=== PATIENT | male | born 1970 | race Caucasian/White ===

== ENCOUNTER 2020-12-16 15:57 | Inpatient (IN) ==
[2020-12-16 16:12] VITALS: BMI 21.4
[2020-12-16] MEDS ORDERED: NS 1000 ML 1,000 ML ONE ×2 (17:53→19:10)
--- NOTE | 2020-12-16 17:55 | DR.RPMALE ---
Rectal pain, Male PCP Primary Care Physician: none Complaint Chief Complaint:: Pt c/o bright red rectal bleeding and abdominal cramping this am. He states he has also had blood in his urine for years. Report received from alf that pt has internal hemorrhoids. Chief Complaint Doctors Comments: 50 y/o male, is an inmate, started with abdominal cramping around 0300 this am. Turned into rectal bleeding, had several episodes over 8 hours of rectal bleeding, associated with abdominal cramping. Pain is waxing, waning, cramping in nature. Radiates to the back. Nothing makes it better , nothing makes it worse. Associated with lightheadedness. Reviewed Nurses Notes Review: Yes Source History Provided: Patient Mode of Arrival Mode of Arrival: Ambulatory Context Onset: Spontaneous Quality Quality: Cramping Severity Pain Severity: Moderate Modifying factors Symptoms worsen with:: Nothing Symptoms Improves with:: Nothing Associated signs and symptoms Associated signs and symptoms: Rectal Bleeding PMH PMH Past Medical History: No Past Surgical History: No Family History History of Family Medical Conditions: Yes Family Medical History: Diabetes Mellitus and Coronary Artery Disease Social History Alcohol Use: None Do you use any recreational Drugs:: No Lives With: Other Lives Where: alf Travel Risk Coronavirus risk:travel/contact w/high risk person: No Has patient experienced Coronavirus symptoms: No Infectious screening In the last 2 months have you had wt loss of >10#?: NO Have you had fever, night sweats or hemotysis?: No Have you traveled outside the country in the last 6 months?: No Isolation: Standard ROS Review of Systems Constitutional: Chills and Malaise Eyes: No Symptoms Reported ENTM: No Symptoms Reported Respiratoy: No Symptoms Reported Cardiovascular: No Symptoms Reported Gastrointestinal/Abdominal: Abdominal Pain and Other (rectal bleeding) Genitourinary: No Symptoms Reported Neurological: Weakness Musculoskeletal: Back Integumentary: No Symptoms Reported Hematologic/Lymphatic: No Symptoms Reported Endocrine: No Symptoms Reported Psychiatric: No Symptoms Reported All Other Systems: Reviewed and Negative PE, MALE Vital Signs Vitals: Temperature 98.4 F Pulse Rate 103 Respiratory Rate 20 Blood Pressure 129/78 O2 Sat by Pulse Oximetry 97 General Limitations: No Limitations General Appearance: Alert and In No Apparent Distress Head Head Exam: Normal Inspection Eyes Eye exam: Normal Appearance ENT ENT Exam: Normal Exam Neck Neck Exam: Normal Inspection Chest Chest Inspection: Normal Inspection Respiratory Respiratory Exam: Normal Lung Sounds Bilat; negative Accessory Muscle Use and Respiratory Distress Cardiovascular Cardiovascular Exam: Regular Rate, Normal Rhythm, Tachycardia (mild) and Normal Heart Sounds Abdominal Exam Abdominal Exam: Normal Inspection, Normal Bowel Sounds, Soft and Tenderness (RLQ > LLQ, no guarding or rebound) Extremities Extremities Exam: Normal Inspection; negative Edema Back Back Exam: Normal Inspection Neurologic Neurological Exam: Alert, Oriented X3 and CN II-XII Intact; negative Motor Sensory Deficit Psychiatric Psychiatric Exam: Normal Affect Skin Skin Exam: Warm and Dry MDM, MALE Differential Diagnosis Differential Diagnosis: Fissure (diverticular bleed, bleeding int hemorrhoid) COURSE Treatment Treatment: 50 y/o male with abdominal cramping and frequent rectal bleeding. Concerning for diverticular bleeding, more than internal hemorrhoid. W/u in itiated. Given IV fluids. 2120- Pt stable, had one small bloody BM here. Labs acceptable. CT of the abd/pelvis shows colitis changes of the mid transverse thru descending colon. No prior h/o colon issues. Recommend admission for further observation, scoping tomorrow. Discussed with Dr. Shafer, will consult/scope tomorrow. Discussed with the hospitalist, Dr. Mckeon, will admit to Dr. Jackson's service. ROR Labs Reviewed Laboratory Results Reviewed?: Yes Result Diagrams: 12/16/20 17:58 12/16/20 17:58 Laboratory: WBC 11.9 X10^3/uL (3.6-10.0) H 12/16/20 17:58 RBC 4.45 X10^6/uL (4.7-6.0) L 12/16/20 17:58 Hgb 14.1 g/dL (13.5-18.0) 12/16/20 17:58 Hct 40.0 % (42.0-54.0) L 12/16/20 17:58 MCV 89.8 fL (80.0-100.0) 12/16/20 17:58 MCH 31.7 pg (27.0-34.0) 12/16/20 17:58 MCHC 35.3 g/dL (33.0-35.0) H 12/16/20 17:58 RDW 13.5 % (11.6-16.5) 12/16/20 17:58 Plt Count 219 X10^3/uL (150.0-450.0) 12/16/20 17:58 MPV 9.2 fL (7.4-11.0) 12/16/20 17:58 Neut % (Auto) 81.6 % (42.0-75.0) H 12/16/20 17:58 Lymph % (Auto) 10.7 % (21.0-51.0) L 12/16/20 17:58 [place] % (Auto) 7.1 % (0.0-13.0) 12/16/20 17:58 Eos % (Auto) 0.2 % (0.9-2.9) L 12/16/20 17:58 Baso % (Auto) 0.4 % (0.2-1.0) 12/16/20 17:58 Neut # (Auto) 9.7 x10^3/uL (2.2-4.8) H 12/16/20 17:58 Lymph # (Auto) 1.3 X10^3/uL (1.3-2.9) 12/16/20 17:58 [place] # (Auto) 0.8 x10^3/uL (0.3-0.8) 12/16/20 17:58 Eos # (Auto) 0.0 x10^3/uL (0.0-0.2) 12/16/20 17:58 Baso # (Auto) 0.0 X10^3/uL (0.0-0.1) 12/16/20 17:58 Absolute Nucleated RBC 0.1 /100WBC 12/16/20 17:58 PT 13.9 SECONDS (11.8-14.3) 12/16/20 17:58 INR Target Range - 12/16/20 17:58 INR 1.12 (0.8-1.3) 12/16/20 17:58 APTT 25.1 SECONDS (22.9-36.5) 12/16/20 17:58 PTT Comment - 12/16/20 17:58 Sodium 141 mmol/L (136-145) 12/16/20 17:58 Corrected Sodium 141 mmol/L (136-145) 12/16/20 17:58 Potassium 4.4 mmol/L (3.5-5.1) 12/16/20 17:58 Chloride 106 mmol/L (98-107) 12/16/20 17:58 Carbon Dioxide 28.7 mmol/L (21-32) 12/16/20 17:58 BUN 15 mg/dL (7-18) 12/16/20 17:58 Creatinine 1.00 mg/dL (0.70-1.30) 12/16/20 17:58 Est GFR (MDRD) Af Amer > 60 (>60) 12/16/20 17:58 Est GFR (MDRD) Non-Af > 60 (>60) 12/16/20 17:58 Glucose 117 mg/dL (65-99) H 12/16/20 17:58 Lactic Acid 0.6 mmol/L (0.4-2.0) 12/16/20 21:40 Calcium 8.7 mg/dL (8.5-10.1) 12/16/20 17:58 Corrected Calcium TNP 12/16/20 17:58 Total Bilirubin 0.70 mg/dL (0.2-1.0) 12/16/20 17:58 AST 30 Units/L (15-37) 12/16/20 17:58 ALT 55 Units/L (12-78) 12/16/20 17:58 Alkaline Phosphatase 92 Units/L (46-116) 12/16/20 17:58 Total Protein 6.8 g/dL (6.4-8.2) 12/16/20 17:58 Albumin 3.5 g/dL (3.4-5.0) 12/16/20 17:58 Globulin 3.3 g/dL (2.5-4.5) 12/16/20 17:58 Albumin/Globulin Ratio 1.1 Ratio (1.1-2.1) 12/16/20 17:58 Lipase 224 Units/L (73-393) 12/16/20 17:58 Specimen Type Clean catch urine 12/16/20 19:14 Urine Color Dark yellow (YELLOW) 12/16/20 19:14 Urine Appearance Clear (CLEAR) 12/16/20 19:14 Urine pH 6.0 (5.0 - 8.0) 12/16/20 19:14 Ur Specific [place] 1.020 (1.000-1.030) 12/16/20 19:14 Urine Protein 3+ (NEGATIVE) 12/16/20 19:14 Urine Glucose (UA) Negative (NEGATIVE) 12/16/20 19:14 Urine Ketones Negative (NEGATIVE) 12/16/20 19:14 Urine Occult Blood 5+ (NEGATIVE) 12/16/20 19:14 Urine Nitrite Negative (NEGATIVE) 12/16/20 19:14 Urine Bilirubin Negative (NEGATIVE) 12/16/20 19:14 Urine Urobilinogen Normal (NORMAL) 12/16/20 19:14 Ur Leukocyte Esterase 1+ (NEGATIVE) 12/16/20 19:14 Urine RBC Tntc /HPF (0-3) A 12/16/20 19:14 Urine WBC 3-5 /HPF (0-5) 12/16/20 19:14 Ur Squamous Epith Cells Few /HPF (NEGATIVE) 12/16/20 19:14 Urine Bacteria Trace /HPF (NEGATIVE) 12/16/20 19:14 Urine Yeast Moderate /HPF (NEGATIVE) 12/16/20 19:14 Ur Culture Indicated? No/not indicated 12/16/20 19:14 XRAY XRAY Interpreted by: Radiologist X-ray Results: changes c/w colitis on CT with IV/oral contrast. Opioid Opioid Risk Tool Age (Garth box if 16-45): No History of Preadolescent Sexual Abuse: No Total: 0 Total Score Risk Category: Low Risk Copyright: Shivam WHITLOCK predicting aberrant behaviors Diagnosis Discharge Problem: Colitis
[2020-12-16] MEDS: NS 1000 ML 1,000 ML IV ONE ×2 (18:04→19:10)
[2020-12-16 18:27] LABS: BASOPHILS % (AUTO) 0.4 % (0.2-1.0); EOSINOPHILS % (AUTO) 0.2 % (0.9-2.9); HEMOGLOBIN 14.1 g/dL (13.5-18.0); LYMPHOCYTES # (AUTO) 1.3 X10^3/uL (1.3-2.9); LYMPHOCYTES % (AUTO) 10.7 % (21.0-51.0); MEAN CORPUSCULAR HEMOGLOBIN 31.7 pg (27.0-34.0); MEAN CORPUSCULAR HGB CONC 35.3 g/dL (33.0-35.0); MEAN CORPUSCULAR VOLUME 89.8 fL (80.0-100.0); MEAN PLATELET VOLUME 9.2 fL (7.4-11.0); MONOCYTES # (AUTO) 0.8 x10^3/uL (0.3-0.8); MONOCYTES % (AUTO) 7.1 % (0.0-13.0); NEUTROPHILS # (AUTO) 9.7 x10^3/uL (2.2-4.8); NEUTROPHILS % (AUTO) 81.6 % (42.0-75.0); PLATELET COUNT 219 X10^3/uL (150.0-450.0); RED BLOOD COUNT 4.45 X10^6/uL (4.7-6.0); RED CELL DISTRIBUTION WIDTH 13.5 % (11.6-16.5); WHITE BLOOD COUNT 11.9 X10^3/uL (3.6-10.0)
[2020-12-16 18:35] LABS: ALANINE AMINOTRANSFERASE 55 Units/L (12-78); ALBUMIN 3.5 g/dL (3.4-5.0); ALKALINE PHOSPHATASE 92 Units/L (46-116); ASPARTATE AMINO TRANSFERASE 30 Units/L (15-37); BLOOD UREA NITROGEN 15 mg/dL (7-18); CALCIUM 8.7 mg/dL (8.5-10.1); CARBON DIOXIDE 28.7 mmol/L (21-32); CHLORIDE 106 mmol/L (98-107); COR NA(FOR HYPERGLY) 141 mmol/L (136-145); LIPASE 224 Units/L (73-393); SODIUM 141 mmol/L (136-145); TOTAL PROTEIN 6.8 g/dL (6.4-8.2); eGFR NON BLACK RACES > 60 (>60)
[2020-12-16 19:29] LABS: BILIRUBIN,URINE NEGATIVE (NEGATIVE); BLOOD/HEMOGLOBIN,URINE 5+ (NEGATIVE); GLUCOSE, URINE NEGATIVE (NEGATIVE); KETONES,URINE NEGATIVE (NEGATIVE); LEUKOCYTE ESTERASE ,URINE 1+ (NEGATIVE); NITRITES,URINE NEGATIVE (NEGATIVE); PROTEIN,URINE 3+ (NEGATIVE); UROBILINOGEN,URINE NORMAL (NORMAL)
[2020-12-16] MEDS ORDERED: NS 100 ML IV 100 ML ONE (19:30)
[2020-12-16 20:00] LABS: APPEARANCE,URINE CLEAR (CLEAR); COLOR,URINE DARK YELLOW (YELLOW)
[2020-12-16 20:01] LABS: BACTERIA,URINE TRACE /HPF (NEGATIVE); RBC,URINE TNTC /HPF (0-3); SQUAMOUS EPITHELIAL CELL,UR FEW /HPF (NEGATIVE); YEAST,URINE MODERATE /HPF (NEGATIVE)
--- NOTE | 2020-12-16 20:29 | CT ---
EXAM: CT ABDOMEN AND PELVIS WITH INTRAVENOUS CONTRASTHISTORY: Abdominal pain and bright red blood per rectum. Blood in urine for years.TECHNIQUE: Spiral axial CT images are obtained through the abdomen and pelvis with the administration of oral contrast and intravenous contrast. Additional coronal and sagittal reformatted images are reconstructed.DOSIMETRY: Total DLP 414.4 mGycm; CTDI 39.7 mGyCOMPARISON: None available.FINDINGS:GASTROINTESTINAL TRACT: There is no evidence for bowel herniation, bowel obstruction, or diverticulitis. A normal-appearing appendix is seen. There is up to 1.5 cm circumferential thickening of the left colon, from the proximal to middle transverse colon to the rectum in keeping with colitis; DDx includes ulcerative colitis, infectious colitis, and ischemic colitis in the appropriate clinical setting; no arterial or venous thrombosis or occlusion is seen. No evidence for pneumatosis intestinalis, portal venous air or free intraperitoneal air.GENITOURINARY SYSTEM: The kidneys are unremarkable. There is no ureteral calculus or stigmata of obstructive uropathy. The urinary bladder is grossly unremarkable for a non-dedicated exam.CT ABDOMEN: The liver, spleen, pancreas, adrenal glands, gallbladder, aorta, and inferior vena cava are within normal limits for a CT scan. There is no intra-abdominal or retroperitoneal lymphadenopathy, free fluid, or free air seen. No abdominal herniation is noted.CT PELVIS: L4/5: Severe DDD marked by severe disc space narrowing, endplate irregularity and sclerosis, and posterior disc bulge (projecting 6.9 mm AP, with potential for L5 nerve root impingements within the lateral recesses. The visualized bony structures are otherwise within normal limits. No pelvic sidewall or inguinal lymphadenopathy is seen. No inguinal herniation is noted. No free air is seen. There is a small amount of free fluid in the distal dependent pelvis, presumed sequela of the large bowel pathology.LUNG BASES: The lung bases are clear.IMPRESSION:1. Up to 1.5 cm circumferential thickening of the left colon, from the proximal to middle transverse colon to the rectum in keeping with colitis; DDx includes ulcerative colitis, infectious colitis, and ischemic colitis in the appropriate clinical setting; no arterial or venous thrombosis or occlusion is seen.2. No evidence for pneumatosis intestinalis, portal venous air or free intraperitoneal air.3. No evidence for acute appendicitis, bowel herniation/obstruction or diverticulitis seen.4. No free air, mass lesions, or lymphadenopathy seen.5. No evidence for pyelonephritis, renal stone disease or obstructive uropathy.6. Small amount of free fluid in the distal dependent pelvis, presumed sequela of large bowel pathology.7. L4/5: Severe DDD marked by severe disc space narrowing, endplate irregularity and sclerosis, and posterior disc bulge (projecting 6.9 mm AP, with potential for L5 nerve root impingements within the lateral recesses.Electronically signed by: Thomas Plasencia (Dec 16, 2020 20:27:39)
[2020-12-16] MEDS ORDERED: D5 1/2 NS 1000 ML 1,000 ML IV ONE (21:36)
[2020-12-16] MEDS: D5 1/2 NS 1000 ML 1,000 ML IV SCH (21:37)
[2020-12-17] MEDS ORDERED: CIPRO IV 200 MG PREMIX* 200 MG/100 ML BAG IV ONE (01:16)
[2020-12-17] MEDS ORDERED: NULYTELY or GO-LYTELY PO ONE (01:16)
[2020-12-17] MEDS ORDERED: FLAGYL IV PREMIX 500 MG BAG 500 MG/100 ML BAG IV ONE (01:17)
[2020-12-17] MEDS: NULYTELY or GO-LYTELY PO SCH (01:31)
[2020-12-17] MEDS: CIPRO IV 400 MG PREMIX* 400 MG/200 ML IV.SOLN. IV SCH ×2 (01:31→13:26)
[2020-12-17] MEDS: FLAGYL IV PREMIX 500 MG BAG 500 MG/100 ML BAG IV SCH ×3 (02:19→19:28)
[2020-12-17] MEDS: D5 1/2 NS 1000 ML 1,000 ML IV SCH ×4 (06:13→22:11)
[2020-12-17 06:22] LABS: BASOPHILS % (AUTO) 0.3 % (0.2-1.0); EOSINOPHILS % (AUTO) 0.2 % (0.9-2.9); HEMATOCRIT 38.6 % (42.0-54.0); HEMOGLOBIN 13.6 g/dL (13.5-18.0); LYMPHOCYTES # (AUTO) 1.5 X10^3/uL (1.3-2.9); LYMPHOCYTES % (AUTO) 14.6 % (21.0-51.0); MEAN CORPUSCULAR HEMOGLOBIN 31.9 pg (27.0-34.0); MEAN CORPUSCULAR HGB CONC 35.2 g/dL (33.0-35.0); MEAN CORPUSCULAR VOLUME 90.6 fL (80.0-100.0); MEAN PLATELET VOLUME 9.5 fL (7.4-11.0); MONOCYTES % (AUTO) 9.8 % (0.0-13.0); NEUTROPHILS # (AUTO) 7.9 x10^3/uL (2.2-4.8); NEUTROPHILS % (AUTO) 75.1 % (42.0-75.0); PLATELET COUNT 221 X10^3/uL (150.0-450.0); RED BLOOD COUNT 4.26 X10^6/uL (4.7-6.0); WHITE BLOOD COUNT 10.5 X10^3/uL (3.6-10.0)
[2020-12-17 06:56] LABS: ALANINE AMINOTRANSFERASE 46 Units/L (12-78); ALBUMIN 3.2 g/dL (3.4-5.0); ALKALINE PHOSPHATASE 82 Units/L (46-116); ASPARTATE AMINO TRANSFERASE 25 Units/L (15-37); BLOOD UREA NITROGEN 9 mg/dL (7-18); CALCIUM 8.3 mg/dL (8.5-10.1); CARBON DIOXIDE 28.6 mmol/L (21-32); CHLORIDE 105 mmol/L (98-107); COR CA(FOR HYPOALB) 8.9 mg/dL (8.5-10.1); COR NA(FOR HYPERGLY) 139 mmol/L (136-145); CREATININE 1.03 mg/dL (0.70-1.30); SODIUM 139 mmol/L (136-145); TOTAL PROTEIN 6.3 g/dL (6.4-8.2); eGFR NON BLACK RACES > 60 (>60)
[2020-12-17] MEDS: MORPHINE SULFATE INJ 4 MG IVP PRN ×2 (10:25→14:35)
[2020-12-17] MEDS ORDERED: DIPRIVAN VIAL 40 ML ONE (10:52)
[2020-12-17] MEDS ORDERED: FENTANYL VIAL INJ 100 mcg ONE (11:05)
[2020-12-18] MEDS: NULYTELY or GO-LYTELY PO SCH (01:12)
[2020-12-18] MEDS: CIPRO IV 400 MG PREMIX* 400 MG/200 ML IV.SOLN. IV SCH (01:14)
[2020-12-18] MEDS: FLAGYL IV PREMIX 500 MG BAG 500 MG/100 ML BAG IV SCH ×2 (02:13→10:34)
[2020-12-18 06:21] LABS: BASOPHILS % (AUTO) 0.3 % (0.2-1.0); EOSINOPHILS % (AUTO) 0.4 % (0.9-2.9); HEMOGLOBIN 12.8 g/dL (13.5-18.0); LYMPHOCYTES # (AUTO) 1.9 X10^3/uL (1.3-2.9); LYMPHOCYTES % (AUTO) 19.7 % (21.0-51.0); MEAN CORPUSCULAR HEMOGLOBIN 32.4 pg (27.0-34.0); MEAN CORPUSCULAR HGB CONC 36.4 g/dL (33.0-35.0); MEAN CORPUSCULAR VOLUME 88.8 fL (80.0-100.0); MONOCYTES # (AUTO) 0.9 x10^3/uL (0.3-0.8); MONOCYTES % (AUTO) 9.7 % (0.0-13.0); NEUTROPHILS # (AUTO) 6.8 x10^3/uL (2.2-4.8); NEUTROPHILS % (AUTO) 69.9 % (42.0-75.0); PLATELET COUNT 178 X10^3/uL (150.0-450.0); RED BLOOD COUNT 3.94 X10^6/uL (4.7-6.0); RED CELL DISTRIBUTION WIDTH 13.3 % (11.6-16.5); WHITE BLOOD COUNT 9.7 X10^3/uL (3.6-10.0)
[2020-12-18 06:30] LABS: ALANINE AMINOTRANSFERASE 33 Units/L (12-78); ALBUMIN 2.6 g/dL (3.4-5.0); ALKALINE PHOSPHATASE 68 Units/L (46-116); ASPARTATE AMINO TRANSFERASE 20 Units/L (15-37); BLOOD UREA NITROGEN 6 mg/dL (7-18); CALCIUM 7.9 mg/dL (8.5-10.1); CARBON DIOXIDE 31.5 mmol/L (21-32); CHLORIDE 107 mmol/L (98-107); CREATININE 0.89 mg/dL (0.70-1.30); SODIUM 141 mmol/L (136-145); TOTAL PROTEIN 5.6 g/dL (6.4-8.2); eGFR NON BLACK RACES > 60 (>60)
[2020-12-18] MEDS: D5 1/2 NS 1000 ML 1,000 ML IV SCH ×2 (06:40→09:54)
--- NOTE | 2020-12-18 12:36 | DR.PROGNOT ---
Hospital Progress Notes - Progress Note for Day of: Progress Note Date: 12/18/20 - Chief Complaint Chief Complaint: s/p colonoscopy with the findings of ulcerative colitis TC and Lt side . sparing the rectum . C Diff negative . no active bleeding today . occasional cramps midabdomen . no nausea or vomiting .no fever - Past Medical Family Social History Past Med/Fam/Surg Hx: No changes since H&P Allergies: Allergies No Known Drug Allergies Allergy (Verified 12/16/20 17:52) - Review Of Systems ROS: No change since H&P - Vital Signs Vital Signs: Temperature 97.8 F Pulse Rate [Left Brachial] 69 Pulse Rate 103 Respiratory Rate 18 Blood Pressure [Left Arm] 142/79 Blood Pressure 129/78 O2 Sat by Pulse Oximetry 97 - Physical Exam Oriented: Normal Eyes: Normal Ear: Normal Nose: Normal Throat: Normal Respiratory: Normal Cardiovascular: Normal : Normal (frequency and occasional hematurea ) GI:Auscultation: Normal GI:Palpation: Normal (soft, flat abdomen . non tender .BS+) GI: Tenderness: Normal Speech Pattern: Clear, Appropriate - Laboratory and Diagnostics Result Diagrams: 12/18/20 05:52 12/18/20 05:32 Labs: 12/17/20 09:38 Stool Stool Culture - Preliminary 12/17/20 09:38 Stool - Final Laboratory WBC 9.7 X10^3/uL (3.6-10.0) 12/18/20 05:52 RBC 3.94 X10^6/uL (4.7-6.0) L 12/18/20 05:52 Hgb 12.8 g/dL (13.5-18.0) L 12/18/20 05:52 Hct 35.0 % (42.0-54.0) L 12/18/20 05:52 MCV 88.8 fL (80.0-100.0) 12/18/20 05:52 MCH 32.4 pg (27.0-34.0) 12/18/20 05:52 MCHC 36.4 g/dL (33.0-35.0) H 12/18/20 05:52 RDW 13.3 % (11.6-16.5) 12/18/20 05:52 Plt Count 178 X10^3/uL (150.0-450.0) 12/18/20 05:52 MPV 9.0 fL (7.4-11.0) 12/18/20 05:52 Neut % (Auto) 69.9 % (42.0-75.0) 12/18/20 05:52 Lymph % (Auto) 19.7 % (21.0-51.0) L 12/18/20 05:52 [place] % (Auto) 9.7 % (0.0-13.0) 12/18/20 05:52 Eos % (Auto) 0.4 % (0.9-2.9) L 12/18/20 05:52 Baso % (Auto) 0.3 % (0.2-1.0) 12/18/20 05:52 Neut # (Auto) 6.8 x10^3/uL (2.2-4.8) H 12/18/20 05:52 Lymph # (Auto) 1.9 X10^3/uL (1.3-2.9) 12/18/20 05:52 [place] # (Auto) 0.9 x10^3/uL (0.3-0.8) H 12/18/20 05:52 Eos # (Auto) 0.0 x10^3/uL (0.0-0.2) 12/18/20 05:52 Baso # (Auto) 0.0 X10^3/uL (0.0-0.1) 12/18/20 05:52 Absolute Nucleated RBC 0.0 /100WBC 12/18/20 05:52 PT 13.9 SECONDS (11.8-14.3) 12/16/20 17:58 INR Target Range - 12/16/20 17:58 INR 1.12 (0.8-1.3) 12/16/20 17:58 APTT 25.1 SECONDS (22.9-36.5) 12/16/20 17:58 PTT Comment - 12/16/20 17:58 Sodium 141 mmol/L (136-145) 12/18/20 05:32 Corrected Sodium TNP 12/18/20 05:32 Potassium 3.9 mmol/L (3.5-5.1) 12/18/20 05:32 Chloride 107 mmol/L (98-107) 12/18/20 05:32 Carbon Dioxide 31.5 mmol/L (21-32) 12/18/20 05:32 BUN 6 mg/dL (7-18) L 12/18/20 05:32 Creatinine 0.89 mg/dL (0.70-1.30) 12/18/20 05:32 Est GFR (MDRD) Af Amer > 60 (>60) 12/18/20 05:32 Est GFR (MDRD) Non-Af > 60 (>60) 12/18/20 05:32 Glucose 108 mg/dL (65-99) H 12/18/20 05:32 Lactic Acid 0.6 mmol/L (0.4-2.0) 12/16/20 21:40 Calcium 7.9 mg/dL (8.5-10.1) L 12/18/20 05:32 Corrected Calcium 9.0 mg/dL (8.5-10.1) 12/18/20 05:32 Total Bilirubin 0.50 mg/dL (0.2-1.0) 12/18/20 05:32 AST 20 Units/L (15-37) 12/18/20 05:32 ALT 33 Units/L (12-78) 12/18/20 05:32 Alkaline Phosphatase 68 Units/L (46-116) 12/18/20 05:32 Total Protein 5.6 g/dL (6.4-8.2) L 12/18/20 05:32 Albumin 2.6 g/dL (3.4-5.0) L 12/18/20 05:32 Globulin 3.0 g/dL (2.5-4.5) 12/18/20 05:32 Albumin/Globulin Ratio 0.9 Ratio (1.1-2.1) L 12/18/20 05:32 Lipase 224 Units/L (73-393) 12/16/20 17:58 Specimen Type Clean catch urine 12/16/20 19:14 Urine Color Dark yellow (YELLOW) 12/16/20 19:14 Urine Appearance Clear (CLEAR) 12/16/20 19:14 Urine pH 6.0 (5.0 - 8.0) 12/16/20 19:14 Ur Specific [place] 1.020 (1.000-1.030) 12/16/20 19:14 Urine Protein 3+ (NEGATIVE) 12/16/20 19:14 Urine Glucose (UA) Negative (NEGATIVE) 12/16/20 19:14 Urine Ketones Negative (NEGATIVE) 12/16/20 19:14 Urine Occult Blood 5+ (NEGATIVE) 12/16/20 19:14 Urine Nitrite Negative (NEGATIVE) 12/16/20 19:14 Urine Bilirubin Negative (NEGATIVE) 12/16/20 19:14 Urine Urobilinogen Normal (NORMAL) 12/16/20 19:14 Ur Leukocyte Esterase 1+ (NEGATIVE) 12/16/20 19:14 Urine RBC Tntc /HPF (0-3) A 12/16/20 19:14 Urine WBC 3-5 /HPF (0-5) 12/16/20 19:14 Ur Squamous Epith Cells Few /HPF (NEGATIVE) 12/16/20 19:14 Urine Bacteria Trace /HPF (NEGATIVE) 12/16/20 19:14 Urine Yeast Moderate /HPF (NEGATIVE) 12/16/20 19:14 Ur Culture Indicated? No/not indicated 12/16/20 19:14 Stool Description 1g bloody mucoid 12/16/20 22:28 Stl Occult Blood (IFOB) Pos-microscopic (NEGATIVE) A 12/16/20 22:28 Stl C. diff Tox B Gene Negative (NEGATIVE) 12/17/20 09:38 Stl C. diff [id number] Negative (NEGATIVE) 12/17/20 09:38 SARS-CoV-2 (PCR) Negative (NEGATIVE) 12/16/20 23:52 Influenza Type A (PCR) Negative (NEGATIVE) 12/16/20 23:52 Influenza Type B (PCR) Negative (NEGATIVE) 12/16/20 23:52 RSV (PCR) Negative (NEGATIVE) 12/16/20 23:52 Tissue Pathology To follow 12/17/20 11:29 - Assessment and Plan 1: ulcerative colitis Lt side . sparing the rectum .awaiting final pathology report . hematurea ( chronic ) . on Prednisone and Flagyl . f/u in 2 weeks to start on Azulfidine . - Problem Patient Problems: Patient Problems Colitis (Acute) K52.9
[2020-12-18 12:40] VITALS: BP 137/76
== END 2020-12-18 13:10 | disposition home or self-care (01) | DRG 392 ==
LOC: ER 15:57 → MED/SURG 15:57 → OBSVTOIN 23:14 → MED/SURG 12-17 01:00
PROVIDERS: ADMIT Internal Medicine; ATTEND Obstetrics & Gynecology Obstetrics
DX: K64.9 Unspecified hemorrhoids; K62.5 Hemorrhage of anus and rectum; K52.89 Other specified noninfective gastroenteritis and colitis